=== PATIENT | male | born 1950 | race Asian ===

== ENCOUNTER 2017-03-21 21:46 | Emergency (ER) | payer OTHER ==
[2017-03-21 22:10] VITALS: BP 141/88; PULSE 89; TEMP 98.9; BMI 29.3
[2017-03-21] MEDS ORDERED: KETOROLAC TROMETHAMINE 30 MG/1 ML VIAL IM ONE (22:28)
--- NOTE | 2017-03-21 22:36 | PDOC ---
History of Present Illness - General Chief Complaint: Back Pain Stated Complaint: PAIN, ACUTE Time Seen by Provider: 03/21/17 22:27 History Source: Patient Exam Limitations: No Limitations - History of Present Illness Initial Comments: 03/21/17 22:29 CC left posterior flank pain x 2 days; no fever; no NVD; Associated Symptoms: reports: malaise. denies: cough, fever/chills, nausea/ vomiting Past History - Past Medical History Dialysis: Yes HTN: Yes Hypercholesterolemia: Yes Other medical history: prostate - Psycho/Social/Smoking Cessation Hx Anxiety: No Suicidal Ideation: No Smoking History: Former smoker Have you smoked in the past 12 months: No Information on smoking cessation initiated: No Hx Alcohol Use: No Drug/Substance Use Hx: No Substance Use Type: None Review of Systems - Review of Systems Constitutional: No: Chills, Fever, Malaise HEENTM: No: Nose Congestion Respiratory: No: Symptoms reported, Cough Cardiac (ROS): No: Symptoms Reported, Chest Pain ABD/GI: Yes: Abd. Pain w/ defecation, Constipated, Abdominal cramping. No: Nausea, Vomiting : Yes: Flank Pain. No: Burning, Incontinence, Urgency Integumentary: No: Symptoms Reported *Physical Exam - Vital Signs Last Vital Signs Temp Pulse Resp BP Pulse Ox 98.9 F 89 18 141/88 100 03/21/17 22:08 03/21/17 22:08 03/21/17 22:08 03/21/17 22:08 03/21/17 22:08 - Physical Exam General Appearance: Yes: Appropriately Dressed HEENT: positive: TMs Normal, Pharynx Normal Neck: positive: Supple. negative: Tender, Rigid, Lymphadenopathy (R), Lymphadenopathy (L) Respiratory/Chest: positive: Lungs Clear Cardiovascular: positive: Regular Rhythm, Regular Rate. negative: Murmur Gastrointestinal/Abdominal: positive: Tenderness (left anterior and posterior flank pain; pain increases with movement; abd mild distended) Medical Decision Making - Medical Decision Making 03/21/17 22:33 Will endorse pt to ED [facility] [employer] [facility] for further evaluation; awaiting Urine and will treat Toradol now for flank pain; further labs, possible imaging may be needed will sign out pt now *DC/Admit/Observation/Transfer Diagnosis at time of Disposition: Acute flank pain
[2017-03-21 22:54] LABS: URINE APPEARANCE CLEAR; URINE BILIRUBIN NEGATIVE (NEGATIVE); URINE BLOOD 2+ (NEGATIVE); URINE COLOR COLORLESS; URINE GLUCOSE (UA) NEGATIVE (NEGATIVE); URINE KETONE NEGATIVE (NEGATIVE); URINE LEUK ESTERASE NEGATIVE (NEGATIVE); URINE NITRITE NEGATIVE (NEGATIVE); URINE PROTEIN NEGATIVE (NEGATIVE); URINE UROBILINOGEN NEGATIVE E.U./dl (0.2-1.0)
[2017-03-21 22:55] LABS: URINE RBC 5 /hpf (0-3)
--- NOTE | 2017-03-22 00:33 | PDOC ---
*Physical Exam - Vital Signs Last Vital Signs Temp Pulse Resp BP Pulse Ox 98.9 F 89 18 141/88 100 03/21/17 22:08 03/21/17 22:08 03/21/17 22:08 03/21/17 22:08 03/21/17 22:08 ED Treatment Course - ADDITIONAL ORDERS Additional order review: Laboratory Results 03/21/17 22:40 Urine Color Colorless Urine Appearance Clear Urine pH 6.0 Urine Protein Negative Urine Glucose (UA) Negative Urine Ketones Negative Urine Blood 2+ H Urine Nitrite Negative Urine Bilirubin Negative Urine Urobilinogen Negative Ur Leukocyte Esterase Negative Urine RBC 5 Urine WBC None - RADIOLOGY Radiology Studies Ordered: Category Date Time Status SPIRAL- RENAL-STONE CT [CT] Stat CT Scan 03/21/17 23:07 Taken - Medications Given in the ED: ED Medications Discontinued Medications Generic Name Dose Route Start Last Admin Trade Name Freq PRN Reason Stop Dose Admin Ketorolac Tromethamine 30 mg 03/21/17 22:28 03/21/17 22:42 Toradol Injection - IM 03/21/17 22:29 30 mg ONCE ONE Administration Medical Decision Making - Medical Decision Making 03/22/17 00:57 This 66-year-old male was sent over from [facility] for concern for kidney stones and imaging studies has [facility] was closing HPI: some stuttering left flank pain that started to radiate to left groin,no vomiting,no upper back pain,no dizziness -Patient has a past medical history of non-insulin dependent diabetes and takes glipizide and janumet -He also has history of hypertension and takes Norvasc States that he does see a urologist for prostate problems He denies any allergies to any medications -Urinalysis shows some minimal blood, 5 RBCs. Microscopic CAT scan shows 1. 3 mm stone at the left UVJ causing minimal hydronephrosis 2. 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 She said there was no retroperitoneal hematoma seen. There is calcification in are and these aneurysm appear chronic spoke to pt at length and he had no knowledge of AAA in his history RECOMMEND -he follows up with his doctor this week and take his CT SCAN study with him plan-follow up with PCP this week *DC/Admit/Observation/Transfer Diagnosis at time of Disposition: Acute flank pain, Kidney stone on left side, Aneurysm of infrarenal abdominal aorta, Aneurysm of right common iliac artery Hydronephrosis Qualifiers: Hydronephrosis type: unspecified Qualified Code(s): N13.30 - Unspecified hydronephrosis - Discharge Dispostion Disposition: HOME Condition at time of disposition: Stable - Referrals Referrals: STAFF,NOT ON [Primary Care Provider] - - Patient Instructions Printed Discharge Instructions: DI for Kidney Stones, Hydronephrosis -- Adult, DI for Aortic Aneurysm Additional Instructions: You need to see your doctor this week and take your CAT SCAN with you You have a small kidney stone on the left side but also an abdominal aortic aneurysm was found and this needs to be followed by your doctor Please fruit picker your prescription at your pharmacy Return immediately for nay worsening symptoms - Post Discharge Activity
[2017-03-22] MEDS ORDERED: TAMSULOSIN HCL 0.4 MG CAP.ER.24H (FP) PO ONE (01:14)
[2017-03-22] MEDS ORDERED: TAMSULOSIN HCL 0.4 MG CAP.ER.24H (FP) ONE (01:34)
== END 2017-03-22 01:50 | disposition home or self-care (01) ==
LOC: SUPCPDRO 21:46 → JERFT 21:46 → JER 21:46
PROC: 3E0233Z Introduction of Anti-inflammatory into Muscle, Percutaneous Approach (ICD-10-PCS; principal; 2017-03-21)
DX: N13.2 Hydronephrosis with renal and ureteral calculous obstruction (principal); I71.4 Abdominal aortic aneurysm, without rupture; I72.3 Aneurysm of iliac artery; I10 Essential (primary) hypertension; E80.0 Hereditary erythropoietic porphyria; E11.9 Type 2 diabetes mellitus without complications; Z79.84 Long term (current) use of oral hypoglycemic drugs; N42.9 Disorder of prostate, unspecified
CPT/HCPCS: 74176; 81003; 81015; 99281-25